=== PATIENT | male | born 1950 | race Caucasian/White ===

== ENCOUNTER 2016-08-22 21:15 | Emergency (ER) | payer OTHER ==
[2016-08-22 21:25] VITALS: RESP 16
[2016-08-22] MEDS ORDERED: NS 500 ML IV ONE (21:50)
--- NOTE | 2016-08-22 22:00 | EDPHY ---
H & P Stated Complaint: LLQ abd pain x5h, NV, Time Seen by Provider: 08/22/16 21:51 HPI/ROS: Chief Complaint: Left-sided abdominal pain HPI: 66-year-old male started having left lower abdominal pain about 4 o'clock this afternoon. Has had some nausea and vomiting associated with this. He cannot find a position of comfort. Is a dull pain which radiates to his back and into his left testicle. It is about a 7 on 10 intensity. Did have a normal bowel movement this morning but does feel he might be constipated. Does not have a history of constipation in the past. No fevers or chills. No urinary symptoms. Does have a history of kidney stones in the past and this does feel similar. ROS: 10 point Review of Systems is negative except as noted in the HPI. PMH: Kidney stones Medications: None Allergies: No known drug allergies Social History: No smoking, occasional alcohol, occasional marijuana Family History: non-contributory Physical Exam: Gen: Awake, Alert, No Distress HEENT: Nose: no rhinorrhea Eyes: PERRLA, EOMI Mouth: Moist mucosa Neck: Supple, no JVD Chest: nontender, lungs clear to auscultation Heart: S1, S2 normal, no murmur Abd: Soft, non-tender, no guarding Back: no CVA tenderness, no midline tenderness Ext: no edema, non-tender Skin: no rash Neuro: CN II-XII intact, Sensation grossly intact, Strength 5/5 in bilateral upper and lower extremities - Personal History Current Tetanus/Diphtheria Vaccine: Yes Current Tetanus Diphtheria and Acellular Pertussis (TDAP): Yes - Medical/Surgical History Hx Asthma: No Hx Chronic Respiratory Disease: No Hx Diabetes: No Hx Cardiac Disease: No Hx Renal Disease: No Hx Cirrhosis: No Hx Alcoholism: No Hx HIV/AIDS: No Hx Splenectomy or Spleen Trauma: No Other PMH: R hip replacement - Social History Smoking Status: Former smoker Constitutional: Initial Vital Signs Temperature (C) 36.4 C 08/22/16 21:21 Heart Rate 44 L 08/22/16 21:21 Respiratory Rate 16 08/22/16 21:21 Blood Pressure 154/93 H 08/22/16 21:21 O2 Sat (%) 96 08/22/16 21:21 O2 Delivery Mode Nasal Cannula O2 (L/minute) 2 Allergies/Adverse Reactions: No Known Allergies Allergy (Verified 07/09/13 16:08) Home Medications: Medication Instructions Recorded oxyCODONE/APAP [Percocet 1 - 2 tab PO Q4H PRN #10 tab 08/23/16325 (*)] Medical Decision Making - Diagnostics Imaging Results: Imaging Impressions Abdomen/Pelvis CT 08/22/16 23:39 Impression: 2.9 x 2.9 mm proximal left ureteral stone with mild proximal hydroureter and hydronephrosis. Findings and recommendations discussed with Americo Alberto MD at 12:02 AM hour, 08/23/2016. Final report concurs with initial preliminary interpretation. Attention: This examination does not use radiographic contrast, and as such, provides only a limited evaluation of the abdomen, pelvis, and retroperitoneum. If there is further clinical suspicion for pathological conditions, a complete CT evaluation of the abdomen and pelvis utilizing intravenous, oral, and rectal contrast should be considered. Imaging: Discussed imaging studies w/ on call pharmacy technician Radiologist ED Course/Re-evaluation: Patient is feeling improved after IV Toradol, Dilaudid, and a lidocaine drip. Pain is down to listened to a 10. Will be given a urine strainer. He will follow up with his doctor at [place]. Will return if this pain is not controlled withtions. - Data Points Laboratory Results: Laboratory Results 08/22/16 21:45 08/22/16 21:45 08/22/16 08/22/16 08/22/16 23:15 21:45 21:45 WBC 12.88 10^3/uL H 10^3/uL (3.80-9.50) RBC 4.98 10^6/uL 10^6/uL (4.40-6.38) Hgb 14.9 g/dL g/dL (13.7-17.5) Hct 43.6 % % (40.0-51.0) MCV 87.6 fL fL (81.5-99.8) MCH 29.9 pg pg (27.9-34.1) MCHC 34.2 g/dL g/dL (32.4-36.7) RDW 13.7 % % (11.5-15.2) Plt Count 265 10^3/uL 10^3/uL (150-400) MPV 9.6 fL fL (8.7-11.7) Neut % (Auto) 84.5 % H % (39.3-74.2) Lymph % (Auto) 11.1 % L % (15.0-45.0) [place] % (Auto) 3.6 % L % (4.5-13.0) Eos % (Auto) 0.1 % L % (0.6-7.6) Baso % (Auto) 0.2 % L % (0.3-1.7) Nucleat RBC Rel Count 0.0 % % (0.0-0.2) Absolute Neuts (auto) 10.89 10^3/uL H 10^3/uL (1.70-6.50) Absolute Lymphs (auto) 1.43 10^3/uL 10^3/uL (1.00-3.00) Absolute Monos (auto) 0.46 10^3/uL 10^3/uL (0.30-0.80) Absolute Eos (auto) 0.01 10^3/uL L 10^3/uL (0.03-0.40) Absolute Basos (auto) 0.03 10^3/uL 10^3/uL (0.02-0.10) Absolute Nucleated RBC 0.00 10^3/uL 10^3/uL (0-0.01) Immature Gran % 0.5 % % (0.0-1.1) Immature Gran # 0.06 10^3/uL 10^3/uL (0.00-0.10) Sodium 138 mEq/L mEq/L (134-144) Potassium 4.2 mEq/L mEq/L (3.5-5.2) Chloride 106 mEq/L mEq/L (97-110) Carbon Dioxide 19 mEq/l L mEq/l (22-31) Anion Gap 13 mEq/L mEq/L (8-16) BUN 21 mg/dL mg/dL (7-23) Creatinine 1.3 mg/dL mg/dL (0.7-1.3) Estimated GFR 56 Glucose 144 mg/dL H mg/dL (70-100) Calcium 9.7 mg/dL mg/dL (8.5-10.4) Urine Color YELLOW Urine Appearance MODERATELY TURBID Urine pH 5.0 (5.0-7.5) Ur Specific [place] 1.025 (1.002-1.030) Urine Protein 1+ H (NEGATIVE) Urine Ketones 1+ H (NEGATIVE) Urine Blood 3+ H (NEGATIVE) Urine Nitrate NEGATIVE (NEGATIVE) Urine Bilirubin NEGATIVE (NEGATIVE) Urine Urobilinogen NEGATIVE EU EU (0.2-1.0) Ur Leukocyte Esterase NEGATIVE (NEGATIVE) Urine RBC 50-182 /hpf H /hpf (0-3) Urine WBC 1-3 /hpf /hpf (0-3) Ur Epithelial Cells NONE SEEN /lpf /lpf (NONE-1+) Urine Mucus TRACE /lpf /lpf (NONE-1+) Urine Glucose NEGATIVE (NEGATIVE) Medications Given: Discontinued Medications Hydromorphone HCl (Dilaudid) 1 mg IVP EDNOW ONE Stop: 08/22/16 23:56 Last Admin: 08/22/16 23:45 Dose: 1 mg Sodium Chloride (Ns) 500 mls @ 0 mls/hr IV ONCE ONE PRN Reason: As Directed Stop: 08/22/16 21:51 Last Admin: 08/22/16 21:51 Dose: 500 mls Sodium Chloride (Ns) 1,000 mls @ 0 mls/hr IV ONCE ONE PRN Reason: Wide Open Stop: 08/22/16 23:33 Last Admin: 08/22/16 22:00 Dose: 1,000 mls Lidocaine HCl 8 ml/ Sodium (Chloride) 108 mls @ 648 mls/hr IV EDNOW ONE Stop: 08/23/16 01:09 Last Admin: 08/23/16 00:55 Dose: 108 mls Ketorolac Tromethamine (Toradol) 15 mg IVP EDNOW ONE Stop: 08/22/16 23:25 Last Admin: 08/22/16 23:32 Dose: 15 mg Ondansetron HCl (Zofran) 4 mg IVP EDNOW ONE Stop: 08/22/16 23:25 Last Admin: 08/22/16 23:33 Dose: 4 mg Departure - Departure Disposition: Home, Routine, Self-Care Clinical Impression: Kidney stone Condition: Good Instructions: Kidney Stones (ED), How to Strain Your Urine (ED), Oxycodone/ Acetaminophen (By mouth) Additional Instructions: Take ibuprofen 600 mg 3 times a day for pain. If you have worsening pain you may take Percocet 1-2 tablets every 4-6 hours as needed for pain. Follow up with your doctor at [place] in 2-3 days. Return emergency department if her pain is not controlled with oral pain medications. Referrals: UNKNOWN,DOCTOR [Other] - As per Instructions [facility] [Outside] - As per Instructions Prescriptions: oxyCODONE/APAP 5/325 [Percocet 5/325 (*)] 1 - 2 tab PO Q4H PRN #10 tab PRN Reason: Pain, Severe
[2016-08-22 22:10] LABS: % IMMATURE GRANULYOCYTES 0.5 % (0.0-1.1); ABSOLUTE IMMATURE GRANULOCYTES 0.06 10^3/uL (0.00-0.10); ADD DIFF? NO; ADD MORPH? NO; ADD SCAN? NO; ANION GAP 13 mEq/L (8-16); ATYPICAL LYMPHOCYTE FLAG 0 (0-99); CALCIUM 9.7 mg/dL (8.5-10.4); CARBON DIOXIDE 19 mEq/l (22-31); CHLORIDE 106 mEq/L (97-110); CREATININE 1.3 mg/dL (0.7-1.3); FRAGMENT RBC FLAG 0 (0-99); GLOMERULAR FILTRATION RATE 56; GLUCOSE 144 mg/dL (70-100); HEMATOCRIT 43.6 % (40.0-51.0); HEMOGLOBIN 14.9 g/dL (13.7-17.5); LEFT SHIFT FLG 0 (0-99); LIPEMIA HEMOLYSIS FLAG 90 (0-99); MEAN CELL HEMOGLOBIN 29.9 pg (27.9-34.1); MEAN CELL HEMOGLOBIN CONCENTR. 34.2 g/dL (32.4-36.7); MEAN CELL VOLUME 87.6 fL (81.5-99.8); MEAN PLATELET VOLUME 9.6 fL (8.7-11.7); PLATELET CLUMPS FLAG 10 (0-99); PLATELET COUNT 265 10^3/uL (150-400); POTASSIUM 4.2 mEq/L (3.5-5.2); RED BLOOD CELL COUNT 4.98 10^6/uL (4.40-6.38); RED CELL DISTRIBUTION WIDTH 13.7 % (11.5-15.2); SODIUM 138 mEq/L (134-144)
[2016-08-22 23:24] LABS: COLOR YELLOW; LEUKOCYTE ESTERASE,URINE NEGATIVE (NEGATIVE); NITRITE,URINE NEGATIVE (NEGATIVE)
[2016-08-22] MEDS ORDERED: ONDANSETRON 4 MG/2 ML VIAL IVP ONE (23:24)
[2016-08-22] MEDS ORDERED: KETOROLAC 15 MG/1 ML SDV IVP ONE (23:24)
[2016-08-22] MEDS ORDERED: KETOROLAC 15 MG/1 ML SDV ONE (23:25)
[2016-08-22] MEDS ORDERED: ONDANSETRON 4 MG/2 ML VIAL ONE (23:25)
[2016-08-22] MEDS ORDERED: NS 1,000 ML IV ONE (23:32)
[2016-08-22 23:42] LABS: MUCUS TRACE /lpf (NONE-1+); RBC,URINE 50-182 /hpf (0-3)
[2016-08-22] MEDS ORDERED: HYDROmorphONE/DILAUDID 1 MG/ML SYR ONE (23:43)
[2016-08-22] MEDS ORDERED: HYDROmorphONE/DILAUDID 1 MG/ML SYR IVP ONE (23:55)
[2016-08-23] MEDS ORDERED: LIDOCAINE 2% IV ONE (01:00)
[2016-08-23] MEDS ORDERED: NS IV ONE (01:00)
[2016-08-23] MEDS ORDERED: LIDOCAINE/DEXTROSE 500 ML IV SCH (01:00)
[2016-08-23] MEDS ORDERED: OXYCODONE/APAP 5/325MG PREPACK#4 BTL TAKEHOME ONE (01:16)
[2016-08-23 01:34] VITALS: BP 161/95; PULSE 78; TEMP 97.7; O2SAT 94
== END 2016-08-23 02:21 | disposition home or self-care (01) ==
DX: N20.0 Calculus of kidney (principal); Z87.891 Personal history of nicotine dependence
CPT/HCPCS: 96374; J1170; J1885; J2405

== ENCOUNTER 2018-06-01 15:55 | Emergency (ER) | payer OTHER ==
--- NOTE | 2018-06-01 16:16 | EDPHY ---
H & P Stated Complaint: fell 4-6ft from ladder memory deficits a&o x2/head inj probable loc Source: Patient, Family Exam Limitations: No limitations - Personal History Current Tetanus Diphtheria and Acellular Pertussis (TDAP): No - Medical/Surgical History Hx Asthma: No Hx Chronic Respiratory Disease: No Hx Diabetes: No Hx Cardiac Disease: No Hx Renal Disease: No Hx Cirrhosis: No Hx Alcoholism: No Hx HIV/AIDS: No Hx Splenectomy or Spleen Trauma: No Other PMH: R hip replacement - Social History Smoking Status: Former smoker Time Seen by Provider: 06/01/18 16:11 HPI/ROS: HPI: This is a 67-year-old male who presents with Chief Complaint: fell 4-6ft from ladder memory deficits a&o x2/head inj probable loc Location: Head Quality: Injury Duration: 1 hr prior to arrival Signs and Symptoms: + bleeding, no radiation, no numbness, no weakness, no tingling, no incontinence, no decreased range of motion, no swelling, + pain, no fever Timing: Acute Severity: Moderate Context: Patient was standing on a ladder when he lost his footing and accidentally fell backwards landing on the cement. He believes that he hit the duck work that was landing floor because it had blood on it. He cannot tell me what he hit. reports likely positive loss of consciousness of unknown length of time. Ambulatory without assistance. Not on any blood thinners. Denies dizziness/nausea/vomiting/amnesia. Also complains of left hand bleeding that occurred prior to the fall. Denies any chest pain, shortness of breath, abdominal pain, nausea, vomiting. Modifying Factors: Direct pressure Comment: ROS: A comprehensive 10 system review of systems is otherwise negative aside from elements mentioned in the history of present illness. MEDICAL/SURGICAL/SOCIAL HISTORY: Medical history: Generally healthy. Does not take any regular medications. Surgical history: Right hip replaced Social history: Former smoker. Retired. . CONSTITUTIONAL: Well-developed, well-nourished, elderly white male, awake and alert, no obvious distress HEENT: Superficial 2 cm laceration noted on right forehead with no active bleeding. Two vertical lacerations measuring approximately 4 mm occipital part of the scalp with mild scant bleeding. normocephalic, PERRL, EOMI. no globe entrapment, no raccoon eyes. no Givens signs.Tympanic membranes clear. No tympanic membrane rupture. Nares patent; no septal hematoma. Oropharynx clear, no exudate and moist pink mucosa. No malocclusion. no dental trauma. Airway patent. No lymphadenopathy. NECK: supple, mild midline tenderness, flexion 45 degrees, extension 45 degrees , right and left lateral flexion 45 degrees. Cardiovascular: Normal S1/S2, regular rate, regular rhythm, without murmur rub or gallop. PULMONARY/CHEST: Symmetrical and nontender. no crepitus. Clear to auscultation bilaterally. Good air movement. No accessory muscle usage. ABDOMEN: Soft, nondistended, nontender, no ecchymosis, no rebound, no guarding , no peritoneal signs, no masses or organomegaly. No CVAT. PELVIC: no pain with rocking; bilateral hips flexion 125 degrees, extension 30 degrees, with no pain internal rotation and no pain external rotation. BACK: No midline tenderness, no paraspinous spasm, deep tendon reflexes 2/2, no pain with straight leg raise EXTREMITIES: 2/2 pulses, left hand no superficial skin avulsion noted in the webspace between the 1st and 2nd digits. deformities, no clubbing, no cyanosis or edema. NEUROLOGICAL: no focal neuro deficits. GCS 15. Cranial nerves 2-12 grossly intact. Speech normal. SKIN: Warm and dry, no erythema. no rash. Good capillary refill. (Eve Enrique) Constitutional: Initial Vital Signs Temperature (C) 36.6 C 06/01/18 15:59 Heart Rate 61 06/01/18 15:59 Respiratory Rate 17 06/01/18 15:59 Blood Pressure 142/84 H 06/01/18 15:59 O2 Sat (%) 92 06/01/18 15:59 O2 Delivery Mode Room Air Allergies/Adverse Reactions: No Known Allergies Allergy (Verified 06/01/18 15:59) Home Medications: Medication Instructions Recorded Ondansetron Odt [Zofran Odt 4 mg 4 mg PO Q4 PRN #12 tab 06/01/18 (*)] Medical Decision Making Procedures: 5:[address] reports received by Dr. Boland. Both CT head and neck are negative. Degenerate changes noted to cervical spine. Laceration Repair - SCALP Verbal consent obtained by patient. Risks discussed, including but not limited to infection, pain, retained foreign body, need for additional repair, poor cosmetic result, tendon damage, nerve damage, poor wound healing, vascular damage. Alternatives to repair discussed. Flushing protocol used to establish correct patient, procedure, equipment, application support manager, and site. Anesthesia obtained by local infiltration. Anesthetized with 0.5% bupivacaine. Laceration location occipital scalp, length laceration 2.5 cm, depth 3 mm, Repair type simple. Patient was prepped and draped in usual sterile fashion. Hemostasis achieved with direct pressure. Wound explored through full range of motion and entire depth of wound probed and visualized with gloved finger. No suspicion for nerve damage, tendon damage, underlying fracture, vascular damage, foreign body, or contamination. Area was cleansed with Shur-Clens and irrigated with sterile saline as per protocol. No foreign body or material removed. Repair method faustina. For of sutures placed. Well aligned, closely approximated. wound was dressed with bacitracin. Patient tolerated well with no immediate complications. Wound care: Clean and dry x 24 hours, gently clean with soap and water, cover with topical antibiotic ointment/bandage. Suture/Staple removal: 10 Days Laceration Repair - SCALP #2 Verbal consent obtained by patient. Risks discussed, including but not limited to infection, pain, retained foreign body, need for additional repair, poor cosmetic result, tendon damage, nerve damage, poor wound healing, vascular damage. Alternatives to repair discussed. Flushing protocol used to establish correct patient, procedure, equipment, application support manager, and site. Anesthesia obtained by local infiltration. Anesthetized with 0.5% bupivacaine with epinephrine. Laceration location occipital scalp, length 4.5 cm, depth 3 mm, Repair type intermediate. Patient was prepped and draped in usual sterile fashion. Hemostasis achieved with direct pressure. Wound explored through full range of motion and entire depth of wound probed and visualized with gloved finger. No suspicion for nerve damage, tendon damage, underlying fracture, vascular damage, foreign body, or contamination. Area was cleansed with Shur-Clens and irrigated with sterile saline as per protocol. No foreign body or material removed. Repair method #2, 4-0 Vicryl subcutaneous sutures. Seven superficial faustina. Well aligned, closely approximated. wound was dressed with bacitracin. Patient tolerated well with no immediate complications. Wound care: Clean and dry x 24 hours, gently clean with soap and water, cover with topical antibiotic ointment/bandage. Suture/Staple removal: 10 Days Laceration Repair - LEFT THUMB Verbal consent obtained by patient. Risks discussed, including but not limited to infection, pain, retained foreign body, need for additional repair, poor cosmetic result, tendon damage, nerve damage, poor wound healing, vascular damage. Alternatives to repair discussed. Flushing protocol used to establish correct patient, procedure, equipment, application support manager, and site. Anesthesia obtained by local infiltration. Anesthetized with 0.5% bupivacaine with epinephrine. Laceration location left thumb, length 5 cm, depth 3 mm, Repair type simple. Patient was prepped and draped in usual sterile fashion. Hemostasis achieved with direct pressure. Wound explored through full range of motion and entire depth of wound probed and visualized with gloved finger. No suspicion for nerve damage, tendon damage, underlying fracture, vascular damage, foreign body, or contamination. Area was cleansed with Shur-Clens and irrigated with sterile saline as per protocol. No foreign body or material removed. Repair method 5 0 Prolene sutures, simple interrupted. Eleven of sutures placed. Well aligned, closely approximated. wound was dressed with bacitracin and dressing. Patient tolerated well with no immediate complications. Wound care: Clean and dry x 24 hours, gently clean with soap and water, cover with topical antibiotic ointment/bandage. Suture/Staple removal: 7-10 Days (Brandon Jacobsen) ED Course/Re-evaluation: Vital signs reviewed and stable upon arrival. Based on advanced age, dangerous mechanism, midline tenderness; head CT and cervical CT imaging ordered Left hand x-ray ordered and my read via PAC shows no fracture, no dislocation. Let topical applied; copiously irrigated 1705: Patient is currently in CT scan. Signed over laceration repair to MEET Jacobsen. 1710: End of shift. Signed over to Dr. Prince pending CT head and CT cervical results. No signs of neurovascular compromise/tenting of skin/compartment syndrome/ extremities and joints examined above and below area of concern and are neurovascularly intact. This patient was seen under the supervision of my secondary supervising physician. I evaluated care for this patient with attending. Discussed this patient with Dr. Prince. (Eve Enrique) Differential Diagnosis: Head injury including but not limited to concussion, skull fracture, intraparenchymal contusion, subarachnoid, subdural and epidural hematoma. (Eve Enrique) - Data Points Medications Given: Discontinued Medications Tetracaine/Epinephrine/Lidocaine (Let Gel Topical) 1 ea TP EDNOW ONE Stop: 06/01/18 16:24 Last Admin: 06/01/18 16:59 Dose: 1 ea Departure - Departure Disposition: Home, Routine, Self-Care Clinical Impression: Closed head injury with concussion Qualifiers: Encounter type: initial encounter Loss of consciousness presence/duration: with LOC of 30 min or less Qualified Code(s): S06.0X1A - Concussion with loss of consciousness of 30 minutes or less, initial encounter Avulsion of skin of left hand Qualifiers: Encounter type: initial encounter Qualified Code(s): S61.402A - Unspecified open wound of left hand, initial encounter Occipital scalp laceration Qualifiers: Encounter type: initial encounter Qualified Code(s): S01.01XA - Laceration without foreign body of scalp, initial encounter Laceration of forehead without complication Qualifiers: Encounter type: initial encounter Qualified Code(s): S01.81XA - Laceration without foreign body of other part of head, initial encounter Condition: Good Instructions: Care For Your Stitches (ED), Laceration (ED), Concussion (ED), Head Injury (ED), Staple Care (ED) Additional Instructions: Laceration/wound discharge instructions: Keep the dressing dry and in place for 48 hours. After 48 hours, you may remove the dressing; wash the site daily with mild soap and water; then pat dry. Take Tylenol 650 mg every 4 hours and/or Ibuprofen 600 mg every 8 hours with food as needed for pain. Apply ice for 30 minutes at a time; 2-3 times per day for the next 1-2 days. Wound Care Follow-Up: Removal of faustina/sutures in [ 7 -10] days. Suture removal is complimentary in uncomplicated cases. Infection or abnormal findings would require reevaluation by the MD. In that case, you may be billed. Head injury/concussion instructions: You sustained a closed head injury and concussion and it is recommended that you observe concussion precautions. Please do not participate in any contact sports or moderate and strenuous activity until all symptoms have resolved or cleared by PCP/Concussion Clinic. Take Tylenol 650 mg every 4 hours and/or Ibuprofen 600 mg every 8 hours with food as needed for pain/headache. Take Zofran every 4-6 hours as needed for nausea, vomiting. Consume a minimum of 8-10 glasses of water or electrolyte fluid replacement drinks that include Gatorade, Powerade, Pedialyte. You are to be closely monitored and observed for the 12 hr following initial injury time. Please follow-up with primary care provider in 5-7 days. If symptoms last longer than 1 week, please follow-up with Dr. Landrum in the concussion Clinic. Return to the ER immediately if you have progressive headaches, neurologic deficits, gait abnormality, visual disturbance, slurred speech, or any other symptom that concerns you. Referrals: Cherelle Landrum MD [Medical Doctor] - As per Instructions Prescriptions: Ondansetron Odt [Zofran Odt 4 mg (*)] 4 mg PO Q4 PRN #12 tab PRN Reason: Nausea/Vomiting, Use 1st
[2018-06-01] MEDS ORDERED: LET GEL TOPICAL 1 EA SYR TP ONE (16:23)
[2018-06-01 18:46] VITALS: BP 136/93
== END 2018-06-01 19:15 | disposition home or self-care (01) ==
DX: S06.0X1A Concussion with loss of consciousness of 30 minutes or less, initial encounter (principal); S01.81XA Laceration without foreign body of other part of head, initial encounter; S61.012A Laceration without foreign body of left thumb without damage to nail, initial encounter; W11.XXXA Fall on and from ladder, initial encounter; Y92.9 Unspecified place or not applicable; Y99.9 Unspecified external cause status; Y93.9 Activity, unspecified